=== PATIENT | female | born 1945 | race American Indian/Alaskan Native ===

== ENCOUNTER 2024-07-12 14:25 | Emergency (ER) | payer OTHER, MEDICARE ==
[~2024-07-12] VITALS: Ht 154.9 cm; Wt 66.7 kg
[2024-07-12] MEDS ORDERED: ONDANSETRON ODT4 MG PO (15:42)
[2024-07-12] MEDS ORDERED: HYDROCODON-ACE1 EA10 PO (15:42)
[2024-07-12] MEDS ORDERED: ONDANSETRON 4 MG TAB ODT SL ONE (15:45)
[2024-07-12] MEDS ORDERED: HYDROCODONE/ACETA 5/325 TAB PO ONE (15:45)
[2024-07-12 15:53] VITALS: BP 151/66
== END 2024-07-12 16:11 | disposition home or self-care (01) ==
LOC: ED 14:25
DX: S42.291A Other displaced fracture of upper end of right humerus, initial encounter for closed fracture (principal); W00.0XXA Fall on same level due to ice and snow, initial encounter; I10 Essential (primary) hypertension
CPT/HCPCS: 73060; 99283; A9270